=== PATIENT | female | born 1990 | race Caucasian/White ===

== ENCOUNTER 2020-04-19 16:37 | Outpatient (CLI) | payer OTHER ==
[2020-04-19 18:04] LABS: BASOPHILS % (AUTO) 0.2 %; EOSINOPHILS # (AUTO) 0.1 10^3/uL (0.0-0.7); EOSINOPHILS % (AUTO) 1.3 %; HGB - HEMOGLOBIN 13.5 g/dL (12.0-16.0); LYMPHOCYTES % (AUTO) 35.2 %; MEAN CORPUSCULAR HEMOGLOBIN 28.9 pg (27.0-31.0); MEAN CORPUSCULAR VOLUME 90.4 fL (81.0-99.0); MEAN PLATELET VOLUME 9.6 fL (7.9-10.8); MONOCYTES # (AUTO) 0.7 10^3/uL (0.0-1.0); MONOCYTES % (AUTO) 7.5 %; NEUTROPHILS # (AUTO) 4.8 10^3/uL (1.5-6.6); NEUTROPHILS % (AUTO) 55.6 %; PLT - PLATELET COUNT 336 10^3/uL (130-450); RED BLOOD COUNT 4.67 10^6/uL (4.20-5.40); RED CELL DISTRIBUTION WIDTH 12.7 % (12.0-15.0); WHITE BLOOD COUNT 8.6 x10^3/uL (4.8-10.8)
[2020-04-19 18:38] LABS: CALCIUM 9.4 mg/dL (8.5-10.3)
[2020-04-19 19:11] LABS: ALBUMIN 4.2 g/dL (3.2-5.5); ALBUMIN/GLOBULIN RATIO 1.3 (1.0-2.2); BILIRUBIN,TOTAL 0.4 mg/dL (0.2-1.0); CREATININE 0.8 mg/dL (0.4-1.0); TOTAL PROTEIN 7.4 g/dL (6.7-8.2)
== END 2020-04-19 23:59 | disposition home or self-care (01) ==
LOC: LAB.WCP 16:37
PROVIDERS: ATTEND Family Medicine
DX: N92.0 Excessive and frequent menstruation with regular cycle (principal)
CPT/HCPCS: 36415; 80053; 84443; 85025

== ENCOUNTER 2020-08-26 16:26 | Outpatient (CLI) | payer OTHER ==
[2020-08-26 17:14] VITALS: BP 125/80
--- NOTE | 2020-08-26 17:14 | SLEEP CARE CONSULTATION ---
Information from patient questionnaire entered by Margarito Coker. I have reviewed and concur with the information entered by Margarito Coker. This document represents the service I personally performed and the decisions made by me, Sanjuanita Kaiser ARNP. History of Present Illness Service Date and Time: 08/26/2020 1626 Reason for Visit: New patient Chief Complaint: reports: Unrefreshed sleep, Snoring, Excessive daytime sleepiness, Fatigue, Frequent awakenings at night. denies: Observed pauses in breathing Date of Onset: Years Usual bedtime: Between 8-10 PM Time it takes to fall asleep: A while Snores at night: Yes Observed to quit breathing while asleep: No (Not sure) Sleeps alone due to snoring: No Number of times waking at night: Every few hours Reasons for waking at night: reports: Snoring, Bathroom, Other (Unknown reason and occasionally to noise). denies: Choking, Gasping for air Toss, Turn, or Twitch while sleeping: Yes Recalls having dreams: Yes Usually gets out of bed at: 6 AM; 7AM on weekends Feels refreshed in the morning: No Morning headache: Yes (Occasionally; bad with allergies; hard to tell cause) Sleepy or fatigued during the day: Yes Ever fallen asleep while driving: No Takes day naps: No Dreams during day naps: No Prior sleep studies: No Additional HPI information: I had the pleasure of seeing STEPHON JULES today regarding the possibility of her having a sleep disorder. Her current complaints are fatigue, frequent night awakenings, excessive daytime sleepiness, snoring and unrefreshed sleep. She is here because her significant other wants her to get it checked out. She snores loudly and has all her life. She has not been told that she has pauses in breathing. She states she wakes up feeling tired all the time. She does wake up with headaches a lot but this can depend on whether her allergies are more active or not. She is not sure if it is because of her snoring or if it is her allergies causing her sinus headaches. She feels she does have trouble concentrating but mostly with her timeline that she get confused with her memory. She will think something happened at a different time than it did in her past. She denies any family history of sleep apnea but her mother and daughter both snore occasionally. 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 Patient is single and lives in [place]. Have you smoked in the past 12 months: No Alcohol use: Yes Alcohol amount and frequency: Social occasions Caffeine use: Yes Caffeine amount and frequency: 1-2 cups every day Family History Family history of sleep disordered breathing: No Family Hx Sleep Apnea: Mother: Snoring (daughter), Other: Snoring Allergies and Home Medications Drug allergies reviewed: Yes (NKDA) Home medication list reviewed: Yes Allergy and home medication list: Daily vitamins Bactrim for a cyst, 2 days left Review of Systems Weight gain over past 5 years: 10 Cardiovascular: denies: high blood pressure Gastrointestinal: denies: heartburn Neurological: reports: headaches Psychiatric: denies: anxiety, depression, mood disorder Ear/Nose/Throat: reports: nasal congestion, sinus problems, dry mouth/throat (wake up with it), tonsillectomy, wisdom teeth removed Endocrine: denies: thyroid disease Immunologic: reports: allergies to food or environment (Seasonal allergies) Physical Exam Blood Pressure: 125/80 Cuff size: wrist Heart Rate: 65 O2 Saturation: 98 Height: 5 ft 5 in Weight: 198 lb Body Mass Index: 32.9 BMI Classification: Obese Neck circumference: 14.2 (inches) Mouth and throat: narrow oropharynx Soft palate: long Hard palate: normal Uvula visualization: 50% Mallampati Class II Tongue: enlarged in size with teeth rios on lateral edges Tonsils: absent bilaterally Neck: normal w/o lymphadenopathy or thyromegaly Heart: regular rate and rhythm Lungs: clear bilaterally Impression and Plan 1. Suspected Obstructive Sleep Apnea-Hypopnea Syndrome, as suggested by a history of loud and irregular snoring, morning headache, frequent awakening during the night, unrefreshed sleep, cognitive impairment, and excessive daytime sleepiness. Narrow oropharynx and obesity are common predisposing factors for obstructive sleep apnea-hypopnea syndrome. I recommend proceeding to polysomnography to confirm the diagnosis and to assess severity. If the patient has significant sleep disordered breathing, a manual CPAP titration study will also be performed to find the optimal treatment pressure. I informed the patient of what the sleep studies involve and after some discussion, obtained agreement to proceed. The pathophysiology of obstructive sleep apnea-hypopnea syndrome was discussed with the patient and health risks of cardiovascular and cerebrovascular disease if not treated. Risks of drowsy driving discussed in detail and patient advised to avoid long distance driving and to machine assembler for puller over at the first sign of drowsiness. Patient agreed to plan. * Schedule polysomnography +- manual CPAP titration study and return in 1-2 weeks after the study to discuss result and initiate therapy. * Avoid long distance driving or driving when feeling sleepy. * Avoid alcohol, sedative and muscle relaxant around bedtime. * Attempt to lose weight. * Review instructions provided by trained office staff on how to prepare for the sleep study. * Return for follow-up after sleep study completed. Counseling Topics: Weight loss health impact Visit Type: In Office Time Spent with Patient (minutes): 31 Provider Statement: I spent 100% of the Face to Face Visit with the patient with greater than 50% spent counseling the patient and coordination of care.
== END 2020-08-26 16:27 | disposition home or self-care (01) ==
LOC: SC 16:26
PROVIDERS: ATTEND Nurse Practitioner Family
DX: G47.10 Hypersomnia, unspecified (principal); R06.83 Snoring; R41.89 Other symptoms and signs involving cognitive functions and awareness; R51.9 Headache, unspecified; G47.8 Other sleep disorders; E66.9 Obesity, unspecified; Z68.32 Body mass index [BMI] 32.0-32.9, adult
CPT/HCPCS: 99203; 99212

== ENCOUNTER 2020-11-04 20:34 | Outpatient (CLI) | payer OTHER | END 2020-11-04 20:35 | disposition home or self-care (01) | LOC: SC 20:34 | PROVIDERS: ATTEND Nurse Practitioner Family | DX: G47.33 Obstructive sleep apnea (adult) (pediatric) (principal); G47.61 Periodic limb movement disorder | CPT/HCPCS: 95810 ==

== ENCOUNTER 2020-11-25 07:44 | Outpatient (CLI) | payer OTHER ==
--- NOTE | 2020-11-25 08:20 | SLEEP CARE CONSULTATION ---
Information from patient questionnaire entered by Desiree Sullivan. I have reviewed and concur with the information entered by Desiree Sullivan. This document represents the service I personally performed and the decisions made by , Sanjuanita Kaiser ARNP. History of Present Illness Service Date and Time: 11/25/2020 0744 Initial [place] Sleepiness Scale score: 19 (in 2020) Current [place] Sleepiness Scale score: 15 Additional HPI information: STEPHON JULES returns for follow up and results of the recently performed polysomnography. I explained the pathophysiology behind obstructive sleep apnea. We then spent quite a bit of time discussing different treatment options. For mild obstructive sleep apnea, surgery and oral appliance are alternatives to nasal CPAP therapy but in moderate or severe cases, nasal CPAP is the most effective and reliable treatment. Because apnea is primarily in supine position, then positional management therapy could be effective. Methods discussed such as positioning with pillows to prevent supine sleep. I reviewed the impact of weight changes on sleep apnea and strongly recommended losing weight. After some discussion, the patient opted to go with the nasal CPAP therapy. Nasal autoCPAP set at 4-15 cmH20 will be ordered with rationale explained. A manual titration study will be ordered if unable to find optimal pressure with office adjustments. I explained how CPAP machine works with sample devices MiNeeds Dreamstation and W-21 [id number] and what to expect when using the machine. Using CPAP every night in order to get used to it was emphasized. Patient advised to put CPAP mask on before getting into bed so as not to fall asleep without CPAP. To assist acclimation to CPAP use, it could also be used for a short time during day while reading or watching TV. The patient was instructed to call the CPAP supplier to discuss any mechanical problem that may occur. If the mask given is uncomfortable or is difficult to keep on through the night even with adjustment, contact the CPAP supplier as many will replace with another mask style if notified before 30 days. If snoring or perceives is not getting enough air or too much air from the machine, notify this office. AASM patient education PAP tips reviewed and given to patient. Patient counseled not drink alcohol less than 4 hours before bedtime as it can increase snoring and apnea. Patient was cautioned about risks of drowsy driving until sleepiness symptoms resolve. Sleep Study - Results Type of Sleep Study: Polysomnography Prior sleep studies: No Polysomnography/Home Sleep Study results: IMPRESSION: The quality of the study is good. The patient had normal sleep efficiency. Except for mild sleep fragmentation, the sleep architecture was normal. Respiratory monitoring showed mild obstructive sleep apneahypopnea (AHI = 6.9) associated with frequent arousals, oxyhemoglobin desaturation and mild hypoxia (souleymane oxygen saturation of 82%). The respiratory events occurred mainly during REM sleep (supine AHI = 8.9; nonsupine = 5.55). Snore was light to moderate in intensity. There was mild periodic leg movement of sleep not contributing to the sleep fragmentation. Cardiac rhythm was normal sinus rhythm without significant arrhythmia. No abnormal behavior (parasomnia) observed during the night. Allergies and Home Medications Home medication list reviewed: Yes (no changes) Review of Systems Review of systems same as previous: Yes (no changes) Physical Exam Heart Rate: 83 O2 Saturation: 98 Height: 5 ft 5 in Weight: 201 lb Body Mass Index: 33.4 BMI Classification: Obese Impression and Plan 1. Obstructive Sleep Apnea-Hypopnea Syndrome, mild, with lowest oxygen saturation of 82%. Obviously this is the cause of the patients symptoms of unrefreshed sleep, and excessive daytime sleepiness. Positive pressure therapy could benefit her overall health and reduce risks for cardiovascular or cerebrovascular adverse events. As mentioned above, the patient will be started on nasal autoCPAP therapy with pressure set at 4-15 cmH2O. A manual titration study will be completed if unable to find optimal treatment pressure with office adjustments. Compliance guidelines also reviewed. A copy of compliance guidelines will be given for reference at check out. Because the apnea is more severe supine, I instructed to avoid sleeping supine using pillow positioning until able to start CPAP use. 2. Periodic limb movement, mild, that did not fragment patients sleep. Periodic limb movement of sleep (PLMS) is characterized by episodes of repetitive limb movements that occur during sleep and usually involve the lower limbs. The etiology is unknown but can be associated with low serum ferritin levels, restless leg syndrome (RLS), neuropathy, spinal cord diseases, kidney disease, rheumatological disorders, narcolepsy, obstructive sleep apnea, and REM sleep behavior disorder. Caffeine can also aggravate PLMS and should be avoided. Sleep hygiene methods can also improve sleep as well as lifestyle changes such as regular exercise. Patient was advised that no treatment is needed at this time. If symptoms increase, then further evaluation is indicated. * Nasal auto CPAP therapy, pressure at 4-15 cm H2O. * Attempt to lose weight. * Avoid alcohol consumption near bedtime. * Avoid supine sleep until using CPAP. * The patient is again cautioned about driving until sleepiness completely resolves. * Return one month after CPAP obtained. I will assess response to therapy and compliance at that time. Counseling Topics: Weight loss health impact Visit Type: In Office Time Spent with Patient (minutes): 20 Provider Statement: I spent 100% of the Face to Face Visit with the patient with greater than 50% spent counseling the patient and coordination of care.
== END 2020-11-25 07:45 | disposition home or self-care (01) ==
LOC: SC 07:44
PROVIDERS: ATTEND Nurse Practitioner Family
DX: G47.33 Obstructive sleep apnea (adult) (pediatric) (principal); E66.9 Obesity, unspecified; Z68.33 Body mass index [BMI] 33.0-33.9, adult
CPT/HCPCS: 99212; 99213

== ENCOUNTER 2021-02-17 08:24 | Outpatient (CLI) | payer OTHER ==
[2021-02-17 09:01] VITALS: BP 129/80
--- NOTE | 2021-02-17 09:01 | SLEEP CARE CONSULTATION ---
Information from patient questionnaire entered by Chucho Greene MA. I have reviewed and concur with the information entered by Chucho Greene MA. This document represents the service I personally performed and the decisions made by , Sanjuanita Kaiser ARNP. History of Present Illness Service Date and Time: 02/17/2021 0824 Previous diagnosis: Mild, Obstructive Sleep Apnea-Hypopnea Syndrome AHI: 6.9 Reason for follow up: first compliance (IST COMPLIANCE - SET UP 01/06) Equipment type: CPAP Equipment obtained from: [facility] (got initial supplies) Mask style: Nasal Mask brand: Resmed Backup mask available: No (will keep old mask when replaced) Last cushion change: 1 month Prior sleep studies: No Type of Sleep Study: Polysomnography HPI additional information: STEPHON JULES was diagnosed to have mild, AHI 6.9, obstructive sleep apnea-hypopnea syndrome and returned today for CPAP therapy first compliance follow-up. Sleep Study - Results Type of Sleep Study: Polysomnography Prior sleep studies: No CPAP Compliance Data - Data Reviewed with Patient Average duration of nightly device use: 4 HOURS 38 MINUTES Compliance rate %: 60 Current pressure setting (cmH2O): 4-15 (median 5.8, avg 8.3, max 9.6) Average residual AHI: 0.3 Central apnea: .1 Obstructive apnea: .1 Subjective Missed days of use due to: reports: travel (vacation, did not take) Patient concerns: reports: nasal congestion, dry mouth, nose, throat. denies: aerophagia, mask discomfort, air blowing in eyes, mask leak noise, condensation in mask/hose, epistaxis, other Observed to snore while using device: No Current pressure setting perceived as: comfortable On therapy, patient: reports: sleeping better, awakening more refreshed, being more awake and alert during the day, more rested overall. denies: drowsiness while driving Initial [place] Sleepiness Scale score: 19 (in 2020) Current [place] Sleepiness Scale score: 8 (in 2020) Allergies and Home Medications Home medication list reviewed: Yes (no changes) Review of Systems Review of systems same as previous: Yes (no changes) Physical Exam Vital signs obtained and entered by: DEVAN PINO Blood Pressure: 129/80 (left) Cuff size: wrist Heart Rate: 69 O2 Saturation: 98 (with mask) Height: 5 ft 5 in Weight: 195 lb (with winter boots) Body Mass Index: 32.4 BMI Classification: Obese Impression and Plan 1. Obstructive Sleep Apnea-Hypopnea Syndrome, mild, with fair treatment compliance and excellent apnea control. On CPAP therapy, the patient has better sleep quality and is more rested overall. She did not use when she went on vacation because she was not comfortable with traveling with the machine. She has been having some nasal congestion that clears well with using Zicam at night. She does not want to use the nasal spray all the time. She also has some dry mouth. Nasal congestion and oral dryness can be reduced with increasing the CPAP humidity. The heated hose can be adjusted higher if condensation with higher humidity setting. Saline nasal spray obtained OTC can also be used prior to CPAP to clear nasal secretions and wash off any nasal allergens to facilitate nasal breathing. Verbal instructions given on how to change humidity and heated hose settings with rationale explaining why to change. The patients pressure will be changed to autoCPAP 6-10 cmH20 to reflect pressure being used. Patient advised to contact me if pressure change is uncomfortable so that it can be adjusted. Goals for apnea control discussed. Patient's apnea severity and rationale for treatment to reduce apnea, improve sleep quality and reduce cardiovascular and cerebrovascular events was reviewed. Patient was encouraged to lose weight for their overall health and to reduce apneas. Patient was encouraged to lose weight for their overall health and to reduce apneas. * Change auto CPAP pressure to 6-10 cmH2O * Notify me if snoring with mask or feeling that the pressure is too much or too little * Attempt to lose weight * Call this office if any problems using CPAP * Return for follow up in 1-2 months, or sooner if concerns arise Counseling Topics: Spare mask, Weight loss health impact Visit Type: In Office Time Spent with Patient (minutes): 21 Provider Statement: I spent 100% of the Face to Face Visit with the patient with greater than 50% spent counseling the patient and coordination of care.
== END 2021-02-17 08:25 | disposition home or self-care (01) ==
LOC: SC 08:24
PROVIDERS: ATTEND Nurse Practitioner Family
DX: G47.33 Obstructive sleep apnea (adult) (pediatric) (principal); E66.9 Obesity, unspecified; Z68.32 Body mass index [BMI] 32.0-32.9, adult
CPT/HCPCS: 99212; 99213

== ENCOUNTER 2021-03-16 08:00 | Outpatient (CLI) | payer OTHER ==
[2021-03-16 19:20] LABS: HCG,QUALITATIVE BLOOD NEGATIVE
== END 2021-03-16 23:59 ==
LOC: LAB.N 08:00
PROVIDERS: ATTEND Nurse Practitioner
DX: Z32.00 Encounter for pregnancy test, result unknown (principal)
CPT/HCPCS: 36415; 84703

== ENCOUNTER 2021-04-19 08:31 | Outpatient (CLI) | payer OTHER ==
--- NOTE | 2021-04-19 09:01 | SLEEP CARE CONSULTATION ---
Information from patient questionnaire entered by Chucho Greene MA. I have reviewed and concur with the information entered by Chucho Greene MA. This document represents the service I personally performed and the decisions made by , Sanjuanita Kaiser ARNP. History of Present Illness Service Date and Time: 04/19/2021 0831 Previous diagnosis: Mild, Obstructive Sleep Apnea-Hypopnea Syndrome AHI: 6.9 Reason for follow up: other (2 MONTH F/U ) Equipment type: CPAP Equipment obtained from: [facility] (getting supplies as needed) Mask style: Nasal Backup mask available: Yes (old mask) Last cushion change: today Prior sleep studies: No Type of Sleep Study: Polysomnography HPI additional information: STEPHON JULES was diagnosed to have mild, AHI 6.9, obstructive sleep apnea-hypopnea syndrome and returned today for CPAP therapy 2 monthl follow-up. Sleep Study - Results Type of Sleep Study: Polysomnography Prior sleep studies: No CPAP Compliance Data - Data Reviewed with Patient Average duration of nightly device use: 5 HOURS 23 MINUTES Compliance rate %: 78 Current pressure setting (cmH2O): 6-10 Average residual AHI: 0.1 Central apnea: 0 Obstructive apnea: 0 Average large leak: 9.0 Subjective Missed days of use due to: reports: mask issues (will randomly take the mask off during the night), travel Patient concerns: denies: aerophagia, mask discomfort, air blowing in eyes, mask leak noise, condensation in mask/hose, nasal congestion, dry mouth, nose, throat , epistaxis, other Observed to snore while using device: No Current pressure setting perceived as: comfortable On therapy, patient: reports: sleeping better, awakening more refreshed, being more awake and alert during the day, more rested overall. denies: drowsiness while driving Initial [place] Sleepiness Scale score: 19 (in 2020) Current [place] Sleepiness Scale score: 7 (2021) Allergies and Home Medications Known drug allergies: No Drug allergies reviewed: Yes Home medication list reviewed: Yes (no changes) Review of Systems Review of systems same as previous: Yes (no changes) Physical Exam Vital signs obtained and entered by: DEVAN PINO Blood Pressure: 140/84 (LEFT, PULSE 81) Cuff size: wrist Heart Rate: 87 O2 Saturation: 97 (WITH PAPER MASK) Height: 5 ft 5 in Weight: 198 lb (WITH CLOTHES) Weight change since last visit: 3 lb loss Body Mass Index: 32.9 BMI Classification: Obese Impression and Plan 1. Obstructive Sleep Apnea-Hypopnea Syndrome, mild, with good treatment compliance and excellent apnea control. On CPAP therapy, the patient has better sleep quality and is more rested overall. Patient states she randomly will remove her mask during the night for no apparent reason but she is managing to wear it most nights. She will also occasionally wake up during the night and the pressure feel high but other perez the pressure is comfortable. I advised her to use the ramp to reduce pressure if it is preventing her from going back to sleep. She voiced understanding. Patient's apnea severity and rationale for treatment to reduce apnea, improve sleep quality and reduce cardiovascular and cerebrovascular events was reviewed. 2. Obesity, unspecified. Patient has lost weight. Currently patients BMI is 32.9. Obesity increases the risk of apnea, CPAP pressure requirements and overall health risks especially cardiovascular and diabetes. Thus patient is advised to continue to try to lose weight. The patient's CPAP pressure range should accommodate some weight loss. Symptoms to report for additional pressure adjustment discussed. * Continue auto CPAP pressure at 6-10 cmH2O * Notify me if snoring with mask or feeling that the pressure is too much or too little * Continue to try to lose weight * Call this office if any problems using CPAP * Return for follow up in 3 months, or sooner if concerns arise Counseling Topics: Spare mask, Weight loss health impact Visit Type: In Office Time Spent with Patient (minutes): 17 Provider Statement: I spent 100% of the Face to Face Visit with the patient with greater than 50% spent counseling the patient and coordination of care.
[2021-04-19 09:02] VITALS: BP 140/84
== END 2021-04-19 08:32 | disposition home or self-care (01) ==
LOC: SC 08:31
PROVIDERS: ATTEND Nurse Practitioner Family
DX: G47.33 Obstructive sleep apnea (adult) (pediatric) (principal); E66.9 Obesity, unspecified; Z68.32 Body mass index [BMI] 32.0-32.9, adult
CPT/HCPCS: 99212

== ENCOUNTER 2021-07-15 15:34 | Outpatient (CLI) | payer OTHER ==
[2021-07-15 16:13] VITALS: BP 124/76
--- NOTE | 2021-07-15 16:13 | SLEEP CARE CONSULTATION ---
Information from patient questionnaire entered by Chucho Greene MA. I have reviewed and concur with the information entered by Chucho Greene MA. This document represents the service I personally performed and the decisions made by , Sanjuanita Kaiser ARNP. History of Present Illness Service Date and Time: 07/15/2021 1534 Previous diagnosis: Mild, Obstructive Sleep Apnea-Hypopnea Syndrome AHI: 6.9 Reason for follow up: three month Accompanied by: Spouse Equipment type: CPAP Equipment obtained from: [employer] (getting supplies as needed) Mask style: Nasal Backup mask available: Yes (old mask) Last cushion change: few months Prior sleep studies: No Type of Sleep Study: Polysomnography HPI additional information: STEPHON JULES was diagnosed to have mild, AHI 6.9, obstructive sleep apnea-hypopnea syndrome and returned with spouse today for CPAP therapy three month follow-up. Sleep Study - Results Type of Sleep Study: Polysomnography Prior sleep studies: No CPAP Compliance Data - Data Reviewed with Patient Average duration of nightly device use: 4 HOURS 54 MINUTES Compliance rate %: 78 Current pressure setting (cmH2O): 6-10 Average residual AHI: 0.1 Central apnea: .0 Obstructive apnea: .1 Average large leak: 13.4 Subjective Missed days of use due to: reports: travel Patient concerns: denies: aerophagia, mask discomfort, air blowing in eyes, mask leak noise, condensation in mask/hose, nasal congestion, dry mouth, nose, throat, epistaxis, other Observed to snore while using device: No Current pressure setting perceived as: comfortable On therapy, patient: reports: sleeping better, awakening more refreshed, being more awake and alert during the day, more rested overall. denies: drowsiness while driving Initial [place] Sleepiness Scale score: 19 (in 2020) Current [place] Sleepiness Scale score: 6 (07/2021) Allergies and Home Medications Known drug allergies: No Drug allergies reviewed: Yes Home medication list reviewed: Yes (no changes) Review of Systems Review of systems same as previous: Yes (no changes) Physical Exam Vital signs obtained and entered by: DEVAN PINO Blood Pressure: 124/76 (pulse 92, 20 resp, right,) Heart Rate: 91 O2 Saturation: 97 (paper) Height: 5 ft 5 in Weight: 205 lb (clothes) Weight change since last visit: 7 lb gain Body Mass Index: 34.1 BMI Classification: Obese Impression and Plan 1. Obstructive Sleep Apnea-Hypopnea Syndrome, mild, with good treatment compliance and excellent apnea control. On CPAP therapy, the patient has better sleep quality and is more rested overall. Patient has no issues with using her CPAP. She denies any problems with nasal congestion, oral dryness, epistaxis or skin irritation. She is having some difficulty with her allergies and will sometimes take mask off during the night. She is taking her allergy medication and sometimes uses a nasal steroid spray for extra control. I advised using a nasal saline spray at beginning of night to rinse out allergens from her nose before going to bed to try to reduce nasal irritation from allergies during the night. Patient's apnea severity and rationale for treatment to reduce apnea, improve sleep quality and reduce cardiovascular and cerebrovascular events was reviewed. Patient is very comfortable with current treatment and pressure setting. I will have her follow up annually. 2. Obesity, unspecified. Patient has gained weight. Currently patients BMI is 34.1. Obesity increases the risk of apnea, CPAP pressure requirements and overall health risks especially cardiovascular and diabetes. Thus patient is advised to continue to try to lose weight. Weight loss can be done with reducing portion size, reducing refined foods and balancing content with vegetables, fruit and whole grain foods. In addition, patient encouraged to get regular exercise. * Continue auto CPAP pressure at 6-10 cmH2O * Notify me if snoring with mask or feeling that the pressure is too much or too little * Attempt to lose weight * Call this office if any problems using CPAP * Return for follow up in 1 year, or sooner if concerns arise Counseling Topics: Spare mask, Weight loss health impact Visit Type: In Office Time Spent with Patient (minutes): 11 Provider Statement: I spent 100% of the Face to Face Visit with the patient with greater than 50% spent counseling the patient and coordination of care.
== END 2021-07-15 15:35 | disposition home or self-care (01) ==
LOC: SC 15:34
PROVIDERS: ATTEND Nurse Practitioner Family
DX: G47.33 Obstructive sleep apnea (adult) (pediatric) (principal); E66.9 Obesity, unspecified; Z68.34 Body mass index [BMI] 34.0-34.9, adult
CPT/HCPCS: 99212

== ENCOUNTER 2022-01-13 07:47 | Outpatient (CLI) | payer OTHER ==
[2022-01-13 12:57] LABS: BASOPHILS % (AUTO) 0.1 %; EOSINOPHILS # (AUTO) 0.1 10^3/uL (0.0-0.7); EOSINOPHILS % (AUTO) 1.2 %; HGB - HEMOGLOBIN 15.8 g/dL (12.0-16.0); LYMPHOCYTES # (AUTO) 2.6 10^3/uL (1.5-3.5); LYMPHOCYTES % (AUTO) 31.1 %; MEAN CORPUSCULAR HEMOGLOBIN 29.3 pg (27.0-31.0); MEAN CORPUSCULAR HGB CONC 32.9 g/dL (32.0-36.0); MEAN CORPUSCULAR VOLUME 89.1 fL (81.0-99.0); MEAN PLATELET VOLUME 9.5 fL (7.9-10.8); MONOCYTES # (AUTO) 0.7 10^3/uL (0.0-1.0); MONOCYTES % (AUTO) 8.4 %; PLT - PLATELET COUNT 322 10^3/uL (130-450); RED BLOOD COUNT 5.39 10^6/uL (4.20-5.40); RED CELL DISTRIBUTION WIDTH 12.5 % (12.0-15.0); WHITE BLOOD COUNT 8.4 x10^3/uL (4.8-10.8)
[2022-01-13 12:59] LABS: ALBUMIN 4.8 g/dL (3.2-5.5); ALBUMIN/GLOBULIN RATIO 1.4 (1.0-2.2); ALKALINE PHOSPHATASE 77 IU/L (42-121); ALT ALANINE AMINOTRANSFERASE 73 IU/L (10-60); AST ASPARTATE AMINOTRANSFERASE 41 IU/L (10-42); BUN - BLOOD UREA NITROGEN 16 mg/dL (6-20); CALCIUM 9.6 mg/dL (8.5-10.3); CARBON DIOXIDE - CO2 25 mmol/L (21-32); CHLORIDE 103 mmol/L (101-111); CHOL/HDL RATIO 4.9 (<4.4); CHOLESTEROL 240 mg/dL; CREATININE 0.6 mg/dL (0.4-1.0); GFR - MDRD 117 (>89); GLUCOSE 106 mg/dL (70-100); HDL CHOLESTEROL 49 mg/dL; LDL CHOLESTEROL,CALCULATED 163 mg/dL; LDL/HDL RATIO 3.3 (<4.4); POTASSIUM 4.1 mmol/L (3.5-5.0); SODIUM 136 mmol/L (135-145); TOTAL PROTEIN 8.2 g/dL (6.7-8.2); TRIGLYCERIDES 141 mg/dL; VLDL CHOLESTEROL 28 mg/dL
[2022-01-13 13:08] LABS: ESTIMATED AVERAGE GLUCOSE 120 mg/dL (70-100); HEMOGLOBIN A1c% 5.8 % (4.27-6.07); THYROID STIMULATING HORMONE 1.14 uIU/mL (0.34-5.60)
== END 2022-01-13 07:48 | disposition home or self-care (01) ==
LOC: LAB.N 07:47
PROVIDERS: ATTEND Physician Assistant
DX: E78.5 Hyperlipidemia, unspecified (principal); R79.89 Other specified abnormal findings of blood chemistry; R73.01 Impaired fasting glucose; N91.2 Amenorrhea, unspecified
CPT/HCPCS: 36415; 80053; 80061; 83036; 83721; 84443; 84702; 85025

== ENCOUNTER 2022-01-17 16:31 | Outpatient (CLI) | payer OTHER | END 2022-01-17 16:32 | disposition home or self-care (01) | LOC: LAB.N 16:31 | PROVIDERS: ATTEND Family Medicine | DX: N91.2 Amenorrhea, unspecified (principal) | CPT/HCPCS: 36415; 84146; 84403 ==

== ENCOUNTER 2022-03-03 07:11 | Outpatient (CLI) | payer OTHER ==
--- NOTE | 2022-03-03 08:55 | Ultrasound Report ---
PROCEDURE: Pelvic w/Transvaginal INDICATIONS: FEMALE INFERTILITY TECHNIQUE: Real-time scanning was performed of the pelvic organs, with image documentation. Additional endovagi nal scanning was necessary due to incomplete visualization of the adnexal and endometrial structures by transabdominal scanning. COMPARISON: None. FINDINGS: Uterus: Uterus is retroverted and normal in size at 8.3 x 5.2 x 4.3 cm. The myometrium is homogeneo us. The endometrium measures 8 mm in combined thickness. No fibroids. A simple cyst measuring 0.9 c m. A cervical cyst with internal echoes measuring 0.9 cm. These are most consistent with nabothian cy sts. Ovaries: The right ovary measures 3.4 x 2.8 x 2.4 cm, with a calculated ovarian volume of 12 cc. Th e left ovary measures 3.3 x 2.2 x 1.9 cm, with a calculated ovarian volume of 7 cc. The ovaries have a normal sonographic appearance. Less than 12 follicles can be seen in each ovary. No adnexal mass es are seen. Other: Trace physiologic pelvic fluid. IMPRESSION: 1. Sonographic appearance of the uterus is normal. The endometrium measures 8 mm. 2. Normal sonographic appearance of the ovaries. 3. Small nabothian cysts. Reviewed by: Mckay Ceballos MD on 03/03/2022 8:54 AM [facility] Approved by: Mckay Ceballos MD on 03/03/2022 8:54 AM PST Station ID: [id number]
== END 2022-03-03 07:12 | disposition home or self-care (01) ==
LOC: DI 07:11
PROVIDERS: ATTEND Obstetrics & Gynecology
DX: N88.8 Other specified noninflammatory disorders of cervix uteri (principal)

== ENCOUNTER 2022-03-03 08:06 | Outpatient (CLI) | payer OTHER | END 2022-03-03 08:07 | disposition home or self-care (01) | LOC: LAB 08:06 | PROVIDERS: ATTEND Obstetrics & Gynecology | DX: N97.9 Female infertility, unspecified (principal) | CPT/HCPCS: 81599; 82397 ==

== ENCOUNTER 2022-09-15 09:26 | Outpatient (CLI) | payer OTHER ==
[2022-09-15 13:02] LABS: BASOPHILS % (AUTO) 0.3 %; EOSINOPHILS # (AUTO) 0.2 10^3/uL (0.0-0.7); EOSINOPHILS % (AUTO) 2.5 %; HCT - HEMATOCRIT 46.7 % (37.0-47.0); HGB - HEMOGLOBIN 15.3 g/dL (12.0-16.0); LYMPHOCYTES # (AUTO) 3.3 10^3/uL (1.5-3.5); LYMPHOCYTES % (AUTO) 35.4 %; MEAN CORPUSCULAR HEMOGLOBIN 29.3 pg (27.0-31.0); MEAN CORPUSCULAR HGB CONC 32.8 g/dL (32.0-36.0); MEAN CORPUSCULAR VOLUME 89.3 fL (81.0-99.0); MEAN PLATELET VOLUME 9.5 fL (7.9-10.8); MONOCYTES # (AUTO) 0.8 10^3/uL (0.0-1.0); MONOCYTES % (AUTO) 8.9 %; NEUTROPHILS # (AUTO) 4.9 10^3/uL (1.5-6.6); NEUTROPHILS % (AUTO) 52.5 %; PLT - PLATELET COUNT 308 10^3/uL (130-450); RED BLOOD COUNT 5.23 10^6/uL (4.20-5.40); RED CELL DISTRIBUTION WIDTH 12.7 % (12.0-15.0); WHITE BLOOD COUNT 9.3 x10^3/uL (4.8-10.8)
[2022-09-15 13:27] LABS: THYROID STIMULATING HORMONE 1.37 uIU/mL (0.34-5.60)
[2022-09-15 13:29] LABS: ALBUMIN 4.4 g/dL (3.2-5.5); ALBUMIN/GLOBULIN RATIO 1.2 (1.0-2.2); ALKALINE PHOSPHATASE 36 IU/L (42-121); ALT ALANINE AMINOTRANSFERASE 60 IU/L (10-60); AST ASPARTATE AMINOTRANSFERASE 31 IU/L (10-42); BILIRUBIN,TOTAL 0.3 mg/dL (0.2-1.0); BUN - BLOOD UREA NITROGEN 16 mg/dL (6-20); CALCIUM 9.4 mg/dL (8.5-10.3); CARBON DIOXIDE - CO2 28 mmol/L (21-32); CHLORIDE 104 mmol/L (101-111); CHOL/HDL RATIO 4.8 (<4.4); CHOLESTEROL 239 mg/dL; CREATININE 0.6 mg/dL (0.4-1.0); GFR - MDRD 116 (>89); GLUCOSE 104 mg/dL (70-100); HDL CHOLESTEROL 50 mg/dL; LDL CHOLESTEROL,CALCULATED 155 mg/dL; LDL/HDL RATIO 3.1 (<4.4); POTASSIUM 4.3 mmol/L (3.5-5.0); SODIUM 139 mmol/L (135-145); TOTAL PROTEIN 8.1 g/dL (6.7-8.2); TRIGLYCERIDES 169 mg/dL; VLDL CHOLESTEROL 34 mg/dL
[2022-09-15 13:47] LABS: ESTIMATED AVERAGE GLUCOSE 114 mg/dL (70-100); HEMOGLOBIN A1c% 5.6 % (4.27-6.07)
== END 2022-09-15 09:27 | disposition home or self-care (01) ==
LOC: LAB.N 09:26
PROVIDERS: ATTEND Physician Assistant
DX: R73.01 Impaired fasting glucose (principal); R79.89 Other specified abnormal findings of blood chemistry; E78.5 Hyperlipidemia, unspecified
CPT/HCPCS: 36415; 80053; 80061; 83036; 83721; 84443; 85025

== ENCOUNTER 2022-09-22 08:26 | Outpatient (CLI) | payer OTHER ==
--- NOTE | 2022-09-22 08:41 | Sleep Patient Instructions ---
Sleep Center Visit Summary - Patient Visit Information Reason for Visit: Annual visit for PAP therapy - Patient Instructions Additional Instructions: You will continue with CPAP therapy with pressure set at 6-10 cmH2O. A supply prescription will be updated with your DME. We encourage you to continue to try to lose weight. Please follow up with the sleep care office in 1 year. - Clinic Information Contact: [facility] [address] [place] [address] [email or web address] T: [phone]
--- NOTE | 2022-09-22 08:44 | SLEEP CARE CONSULTATION ---
Information from patient questionnaire entered by Nina Tello. I have reviewed and concur with the information entered by Nina Tello. This document represents the service I personally performed and the decisions made by me, Sanjuanita Kaiser ARNP. History of Present Illness Service Date and Time: 09/22/2022825 Previous diagnosis: Mild, Obstructive Sleep Apnea-Hypopnea Syndrome AHI: 6.9 Reason for follow up: annual (LAST SEEN 07/2021) Equipment type: CPAP (Resmed 11, s/u 12/2020) Equipment obtained from: [employer] (getting supplies as needed) Mask style: Nasal Mask brand: Resmed (Airfit [id number]) Backup mask available: Yes (other mask) Last cushion change: last month Prior sleep studies: No Type of Sleep Study: Polysomnography HPI additional information: STEPHON JULES was diagnosed to have mild, AHI 6.9, obstructive sleep apnea-hypopnea syndrome and returned today for CPAP therapy annual follow-up. Sleep Study - Results Type of Sleep Study: Polysomnography Prior sleep studies: No CPAP Compliance Data - Data Reviewed with Patient Average duration of nightly device use: 6 HRS 8 MIN Compliance rate %: 87 (03/24/22-09/19/22; 160/180 days used) Current pressure setting (cmH2O): 6-10 Average residual AHI: 0.3 Central apnea: 0 Obstructive apnea: 0.2 Average large leak: 0.4 L/min Subjective Missed days of use due to: reports: travel (vacation) Patient concerns: denies: aerophagia, mask discomfort, air blowing in eyes, mask leak noise, condensation in mask/hose, nasal congestion, dry mouth, nose, throat, epistaxis Observed to snore while using device: No Current pressure setting perceived as: comfortable On therapy, patient: reports: sleeping better, awakening more refreshed, being more awake and alert during the day, more rested overall. denies: drowsiness while driving Initial [place] Sleepiness Scale score: 19 (in 2020) Current [place] Sleepiness Scale score: 4 (09/22/22) Allergies and Home Medications Known drug allergies: No Drug allergies reviewed: Yes Home medication list reviewed: Yes (Bupropion, Naltrexone) Review of Systems Review of systems same as previous: No (PCOS) Physical Exam Vital signs obtained and entered by: NINA Blunt MA Blood Pressure: 124/70 (LEFT ARM) Cuff size: regular Heart Rate: 57 O2 Saturation: 98 Height: 5 ft 5 in Weight: 207 lb 9.6 oz Body Mass Index: 34.5 BMI Classification: Obese Impression and Plan 1. Obstructive Sleep Apnea-Hypopnea Syndrome, mild, with good treatment compliance and good apnea control. On CPAP therapy, the patient has better sleep quality and is more rested overall. She state she did not take her CPAP when she went on vacation to the [facility] and she could definitely feel a difference in her daytime fatigue. Patient has significant improvement of their sleep apnea and is satisfied with current CPAP therapy. Patient denies problems with oral dryness, nasal congestion, epistaxis, skin irritation or aerophagia. Patient's apnea severity and rationale for treatment to reduce apnea, improve sleep quality and reduce cardiovascular and cerebrovascular events was reviewed. 2. Obesity, unspecified. Currently patients BMI is 34.5. She is currently trying to lose weight. Obesity increases the risk of apnea, CPAP pressure requirements and overall health risks especially cardiovascular and diabetes. Thus patient is advised to continue to try to lose weight. * Continue auto CPAP pressure at 6-10 cmH2O * Update supply prescription * Notify me if snoring with mask or feeling that the pressure is too much or too little * Attempt to lose weight * Call this office if any problems using CPAP * Return for follow up in 1 year, or sooner if concerns arise Counseling Topics: Spare mask, Weight loss health impact Visit Type: In Office Time Spent with Patient (minutes): 12 Provider Statement: I spent 100% of the Face to Face Visit with the patient with greater than 50% spent counseling the patient and coordination of care.
[2022-09-22 08:46] VITALS: BP 124/70
== END 2022-09-22 08:27 | disposition home or self-care (01) ==
LOC: SC 08:26
PROVIDERS: ATTEND Nurse Practitioner Family
DX: G47.33 Obstructive sleep apnea (adult) (pediatric) (principal); E66.9 Obesity, unspecified; Z68.34 Body mass index [BMI] 34.0-34.9, adult
CPT/HCPCS: 99212

== ENCOUNTER 2023-08-01 07:20 | Outpatient (CLI) | payer OTHER, BC ==
[2023-08-01 11:47] LABS: BASOPHILS % (AUTO) 0.3 %; EOSINOPHILS # (AUTO) 0.1 10^3/uL (0.0-0.7); EOSINOPHILS % (AUTO) 1.6 %; HCT - HEMATOCRIT 45.9 % (37.0-47.0); HGB - HEMOGLOBIN 14.7 g/dL (12.0-16.0); LYMPHOCYTES # (AUTO) 2.7 10^3/uL (1.5-3.5); LYMPHOCYTES % (AUTO) 35.8 %; MEAN CORPUSCULAR HEMOGLOBIN 28.8 pg (27.0-31.0); MEAN CORPUSCULAR VOLUME 89.8 fL (81.0-99.0); MEAN PLATELET VOLUME 9.8 fL (7.9-10.8); MONOCYTES # (AUTO) 0.6 10^3/uL (0.0-1.0); NEUTROPHILS # (AUTO) 4.1 10^3/uL (1.5-6.6); NEUTROPHILS % (AUTO) 54.2 %; PLT - PLATELET COUNT 290 10^3/uL (130-450); RED BLOOD COUNT 5.11 10^6/uL (4.20-5.40); RED CELL DISTRIBUTION WIDTH 12.3 % (12.0-15.0); WHITE BLOOD COUNT 7.6 x10^3/uL (4.8-10.8)
[2023-08-01 12:05] LABS: ALBUMIN 4.8 g/dL (3.2-5.5); ALBUMIN/GLOBULIN RATIO 1.7 (1.0-2.2); ALKALINE PHOSPHATASE 32 IU/L (42-121); ALT ALANINE AMINOTRANSFERASE 25 IU/L (10-60); AST ASPARTATE AMINOTRANSFERASE 15 IU/L (10-42); BILIRUBIN,TOTAL 0.6 mg/dL (0.2-1.0); BUN - BLOOD UREA NITROGEN 17 mg/dL (6-20); CALCIUM 10.3 mg/dL (8.5-10.3); CARBON DIOXIDE - CO2 28 mmol/L (21-32); CHLORIDE 104 mmol/L (101-111); CHOL/HDL RATIO 4.1 (<4.4); CHOLESTEROL 204 mg/dL; CREATININE 0.7 mg/dL (0.6-1.3); GFR - MDRD 96 (>89); GLUCOSE 104 mg/dL (74-104); HDL CHOLESTEROL 50 mg/dL; LDL CHOLESTEROL,CALCULATED 131 mg/dL; LDL/HDL RATIO 2.6 (<4.4); POTASSIUM 3.9 mmol/L (3.5-4.5); SODIUM 138 mmol/L (135-145); TOTAL PROTEIN 7.7 g/dL (6.4-8.9); TRIGLYCERIDES 116 mg/dL (48-352); VLDL CHOLESTEROL 23 mg/dL
[2023-08-01 12:11] LABS: THYROID STIMULATING HORMONE 1.16 uIU/mL (0.34-5.60)
[2023-08-01 12:38] LABS: ESTIMATED AVERAGE GLUCOSE 108 mg/dL (70-100); HEMOGLOBIN A1c% 5.4 % (4.27-6.07)
== END 2023-08-01 07:21 | disposition home or self-care (01) ==
LOC: LAB.N 07:20
PROVIDERS: ATTEND Physician Assistant
DX: E78.5 Hyperlipidemia, unspecified (principal); Z13.9 Encounter for screening, unspecified; R73.01 Impaired fasting glucose
CPT/HCPCS: 36415; 80053; 80061; 83036; 83721; 84443; 85025

== ENCOUNTER 2023-10-19 08:22 | Outpatient (CLI) | payer OTHER, BC ==
--- NOTE | 2023-10-19 08:47 | Sleep Patient Instructions ---
Sleep Center Visit Summary - Patient Visit Information Reason for Visit: Annual follow-up - Patient Instructions Additional Instructions: You will continue with CPAP therapy with pressure set at 6-10 cmH2O. A supply prescription will be updated with your DME supplier. Please follow up with the sleep care office in 1 year. - Clinic Information Contact: [facility] [address] [place] [email or web address] T: [phone]
--- NOTE | 2023-10-19 08:49 | SLEEP CARE CONSULTATION ---
Information from patient questionnaire entered by Nina Tello. I have reviewed and concur with the information entered by Nina Tello. This document represents the service I personally performed and the decisions made by , Sanjuanita Kaiser ARNP. History of Present Illness Service Date and Time: 10/19/2023821 Previous diagnosis: Mild, Obstructive Sleep Apnea-Hypopnea Syndrome AHI: 6.9 (11/04/20) Reason for follow up: annual (LAST SEEN 09/2022) Equipment type: CPAP (Resmed 11, s/u 12/2020) Equipment obtained from: [employer] (getting supplies as needed) Mask style: Nasal (N30) Backup mask available: Yes Last cushion change: last month Prior sleep studies: No Type of Sleep Study: Polysomnography HPI additional information: STEPHON JULES was diagnosed to have mild, AHI 6.9, obstructive sleep apnea-hypopnea syndrome and returned today for CPAP therapy annual follow-up. Sleep Study - Results Type of Sleep Study: Polysomnography Prior sleep studies: No CPAP Compliance Data - Data Reviewed with Patient Average duration of nightly device use: 6 HRS 56 MINS Compliance rate %: 92 (10/17/22-10/16/23; 355/365 days used) Current pressure setting (cmH2O): 6-10 Average residual AHI: 0.3 Central apnea: 0 Obstructive apnea: 0.2 Hypopnea: 0.1 Average large leak: 0.2 L/min Subjective Missed days of use due to: reports: travel Patient concerns: denies: aerophagia, mask discomfort, air blowing in eyes, mask leak noise, condensation in mask/hose, nasal congestion, dry mouth, nose, throat, epistaxis Observed to snore while using device: No Current pressure setting perceived as: comfortable On therapy, patient: reports: sleeping better, awakening more refreshed, being more awake and alert during the day, more rested overall. denies: drowsiness while driving Initial [place] Sleepiness Scale score: 19 (in 2020) Current [place] Sleepiness Scale score: 8 (10/19/23) Allergies and Home Medications Known drug allergies: No Drug allergies reviewed: Yes Home medication list reviewed: Yes (no changes) Allergy and home medication list: Allergies No Known Drug Allergies Allergy (Verified 10/19/23 08:29) Review of Systems Review of systems same as previous: Yes (NO CHANGE) Physical Exam Vital signs obtained and entered by: NINA Blunt MA Blood Pressure: 133/78 (LEFT ARM) Cuff size: regular Heart Rate: 65 O2 Saturation: 95 Height: 5 ft 5 in Weight: 201 lb 9.6 oz Weight change since last visit: 6 lb loss Body Mass Index: 33.5 BMI Classification: Obese Impression and Plan 1. Obstructive Sleep Apnea-Hypopnea Syndrome, mild, with good treatment compliance and good apnea control. On CPAP therapy, the patient has better sleep quality and is more rested overall. She has significant improvement of her sleep apnea and is satisfied with current CPAP therapy. She intends to continue using her CPAP long-term. Patient denies problems with oral dryness, nasal congestion, epistaxis, skin irritation or aerophagia. Patient's apnea severity and rationale for treatment to reduce apnea, improve sleep quality and reduce cardiovascular and cerebrovascular events was reviewed. 2. Obesity, unspecified. Currently patients BMI is 33.5. Obesity increases the risk of apnea, CPAP pressure requirements and overall health risks especially cardiovascular and diabetes. Thus patient is advised to continue to try to lose weight. * Continue auto CPAP pressure at 6-10 cmH2O * Update supply prescription * Notify me if snoring with mask or feeling that the pressure is too much or too little * Attempt to lose weight * Call this office if any problems using CPAP * Return for follow up in 12 months, or sooner if concerns arise Counseling Topics: Spare mask, Weight loss health impact Prescriptions: Device supplies Follow up with Sleep Care in: 1 year Visit Type: In Office Time Spent with Patient (minutes): 11 Provider Statement: I spent 100% of the Face to Face Visit with the patient with greater than 50% spent counseling the patient and coordination of care.
[2023-10-19 08:55] VITALS: BP 133/78; O2SAT 95
== END 2023-10-19 08:23 | disposition home or self-care (01) ==
LOC: SC 08:22
PROVIDERS: ATTEND Nurse Practitioner Family
DX: G47.33 Obstructive sleep apnea (adult) (pediatric) (principal); E66.9 Obesity, unspecified; Z68.33 Body mass index [BMI] 33.0-33.9, adult
CPT/HCPCS: 99212